=== PATIENT | male | born 1970 | race Caucasian/White ===

== ENCOUNTER 2020-07-14 12:01 | Emergency (ER) | payer OTHER ==
[2020-07-14] MEDS ORDERED: ERYTHROMYCIN OP1 GM OD (14:01)
[2020-07-14] MEDS ORDERED: NAPROSYN500 MG PO (14:03)
== END 2020-07-14 14:26 | disposition home or self-care (01) ==
LOC: ER1 12:01
DX: T15.01XA Foreign body in cornea, right eye, initial encounter (principal); I10 Essential (primary) hypertension; Z88.0 Allergy status to penicillin; Z79.899 Other long term (current) drug therapy; Z23 Encounter for immunization
CPT/HCPCS: 65220; 90471; 90715; 99283

== ENCOUNTER → 2021-08-14 | Outpatient (CLI) | payer OTHER ==
[~2021-08-14] MED LIST: ERYTHROMYCIN OP1 GM OD; NAPROSYN500 MG PO
== END ==
LOC: KOH-I 08-09 10:30
DX: J01.81 Other acute recurrent sinusitis (principal); R09.81 Nasal congestion; R09.82 Postnasal drip; J34.2 Deviated nasal septum; J34.1 Cyst and mucocele of nose and nasal sinus
CPT/HCPCS: 70486